=== PATIENT | male | born 1950 | race Asian ===

== ENCOUNTER 2019-05-06 18:45 | Emergency (ER) | payer BC, OTHER ==
[~2019-05-06] VITALS: Ht 172.7 cm; Wt 72.6 kg
[2019-05-06 20:24] LABS: BASOPHIL % 0.2 % (0-2); PLATELET COUNT 205 x10^3mcL (130-400); RED CELL DISTRIBUTION WIDTH 14.6 % (11.5-14.5)
[2019-05-06 20:42] LABS: CARBON DIOXIDE 26.9 mmol/L (21-32); CHLORIDE SERUM 100 mmol/L (98-107); CREATININE SERUM 1.1 mg/dL (0.7-1.3); GFR1 > 60 mL/min; GLUCOSE SERUM 144 mg/dL (74-106); POTASSIUM SERUM 4.3 mmol/L (3.5-5.1); SODIUM SERUM 135 mmol/L (136-145)
[2019-05-06 20:47] LABS: ALKALINE PHOSPHATASE 45 U/L (46-116); ALT/SGPT 24 U/L (16-63); AST/SGOT 22 U/L (15-37); BILIRUBIN TOTAL 0.6 mg/dL (0.20-1.00); TOTAL PROTEIN, SERUM 7.1 g/dL (6.4-8.2)
[2019-05-06 20:48] LABS: ALBUMIN 3.1 g/dL (3.4-5.0)
[2019-05-06 23:23] VITALS: BP 126/51
== END 2019-05-06 23:23 | disposition short-term general hospital (02) ==
LOC: ED 18:45
PROVIDERS: Student in an Organized Health Care Education/Training Program
DX: S06.300A Unspecified focal traumatic brain injury without loss of consciousness, initial encounter (principal); S32.009A Unspecified fracture of unspecified lumbar vertebra, initial encounter for closed fracture; I10 Essential (primary) hypertension; E11.9 Type 2 diabetes mellitus without complications; M19.90 Unspecified osteoarthritis, unspecified site; Z98.890 Other specified postprocedural states; W22.8XXA Striking against or struck by other objects, initial encounter; Y93.89 Activity, other specified; Y92.89 Other specified places as the place of occurrence of the external cause; Y99.8 Other external cause status
CPT/HCPCS: J1953; J3490